=== PATIENT | female | born 1965 | race Caucasian/White ===

== ENCOUNTER → 2016-11-17 | Outpatient (CLI) | payer BC ==
[2004-11-03 15:16] VITALS: TEMP 98.7
[~2016-11-17] MED LIST: KURVELO; NORCO 325 MG-51 TAB PO
== END ==
LOC: COL.RAD 12:32
DX: K80.20 Calculus of gallbladder without cholecystitis without obstruction (principal)

== ENCOUNTER → 2016-11-17 | Outpatient (CLI) | payer BC ==
[2004-11-03 15:16] VITALS: TEMP 98.7
== END ==
LOC: MC.RAD 08:21
DX: Z12.31 Encounter for screening mammogram for malignant neoplasm of breast (principal)

== ENCOUNTER → 2017-12-10 | Outpatient (CLI) | payer BC ==
[2004-11-03 15:16] VITALS: TEMP 98.7
== END ==
LOC: MC.RAD 11:20
DX: Z12.31 Encounter for screening mammogram for malignant neoplasm of breast (principal)

== ENCOUNTER 2019-01-13 07:02 | Day surgery (SDC) | payer BC ==
[2019-01-13] VITALS (8 sets, daily range): BP systolic 92–139; BP diastolic 49–67; PULSE 64–85; TEMP 97.4–97.5
[~2019-01-13] VITALS: Ht 157.5 cm; Wt 76.7 kg
--- NOTE | 2019-01-13 08:50 | NUR ---
PATIENT RETURNED TO BAY 2 ACCOMPANIED BY ENDO STAFF. PATIENT WALKED FROM CART TO CHAIR WITH 1 ASSIST. VSS. PATIENT DENIES C/O'S. OFFERED AND RECEIVED CRACKERS AND WATER. AT BEDSIDE.
--- NOTE | 2019-01-13 09:15 | NUR ---
PATIENT CONTINUES RESTING IN CHAIR. PATIENT STATES SHE IS STILL VERY SLEEPY. BLOOD PRESSURE CONTINUES LOW. INCREASED RATE OF IV FLUIDS.
--- NOTE | 2019-01-13 09:24 | NUR ---
0850 PATIENT TO BAY2 PER CART ACCOMPANIED BY ENDO STAFF. WALKED FROM CART TO CHAIR WITH 1 ASSIST. VSS. OFFERED AND RECEIVED WATER AND CRACKERS. AT BEDSIDE.
--- NOTE | 2019-01-13 09:26 | NUR ---
PATIENT RESTING IN CHAIR WITHOUT C/O'S. BLOOD PRESSURE LOW. WILL CONTINUE TO MONITOR.
--- NOTE | 2019-01-13 09:34 | NUR ---
PATIENT CONTINUES SLEEPY. BLOOD PRESSURE CONTINUES LOW. OTHER VITALS STABLE. IV FLUIDS INFUSING. WILL CONTINUE TO MONITOR. O920 DR COTTRELL IN PATIENT ROOM AND TALK TO PATIENT AND .
--- NOTE | 2019-01-13 09:45 | NUR ---
PATIENT HAS EYES OPEN. DID TRY ED CRACKERS AND DRINKING WATER. BLOOD PRESSURE CONTINUES LOW. OTHER VITAL STABLE. IV FLUIDS INFUSING. PATIENT DENIES NAUSEA.
--- NOTE | 2019-01-13 10:05 | NUR ---
PATIENT IN CHAIR. BLOOD PRESSURE INCREASED TO 96/56, RECHECKED RT ARM FIORELLA-82/59. PATIENT DENIES LIGHT HEADED/DIZZINESS. PATIENT GOT UP AND WALKED IN EUCEDA WITH 1 ASSIST. PATIENT CONTINUES TO DENIES SYMPTOMS. WILL CONTINUE TO MONITOR. IV FLUIDS CONTINUE INFUSING.
--- NOTE | 2019-01-13 10:20 | NUR ---
PATIENT EATS ED CRACKERS. IV FLUIDS INFUSED. BLOOD PRESSURE TRENDING UP. PATIENT STATES READY TO GO HOME. 1030 DISCHARGE INSTRUCTIONS GIVEN VERBAL AND WRITTEN. QUESTIONS ANSWERED. PATIENTS GOES TO GET VECHILE.
== END 2019-01-13 10:34 | disposition home or self-care (01) ==
LOC: SDCO 07:02
DX: Z12.11 Encounter for screening for malignant neoplasm of colon (principal); K63.5 Polyp of colon; K64.0 First degree hemorrhoids; Z90.49 Acquired absence of other specified parts of digestive tract
CPT/HCPCS: OP; J2250; J2405; J3010; J7030

== ENCOUNTER → 2019-02-20 | Outpatient (CLI) | payer BC | LOC: MC.RAD 16:08 | DX: Z12.31 Encounter for screening mammogram for malignant neoplasm of breast (principal) ==

== ENCOUNTER → 2020-02-24 | Outpatient (CLI) | payer BC | LOC: MC.RAD 16:20 | DX: Z12.31 Encounter for screening mammogram for malignant neoplasm of breast (principal) ==

== ENCOUNTER → 2021-03-15 | Outpatient (CLI) | payer BC | LOC: MC.RAD 16:23 | DX: Z12.31 Encounter for screening mammogram for malignant neoplasm of breast (principal) ==

== ENCOUNTER 2021-06-03 17:43 | Emergency (ER) | payer BC ==
[2021-06-03 20:00] VITALS: BP 135/75; PULSE 83
== END 2021-06-03 20:06 | disposition home or self-care (01) ==
LOC: COL.ER 17:43
DX: M79.671 Pain in right foot (principal); M25.571 Pain in right ankle and joints of right foot; M25.551 Pain in right hip; W18.2XXA Fall in (into) shower or empty bathtub, initial encounter; Y92.009 Unspecified place in unspecified non-institutional (private) residence as the place of occurrence of the external cause
CPT/HCPCS: J3010

== ENCOUNTER → 2022-03-28 | Outpatient (CLI) | payer BC | LOC: MC.RAD 16:54 | DX: Z12.31 Encounter for screening mammogram for malignant neoplasm of breast (principal); N64.89 Other specified disorders of breast ==

== ENCOUNTER → 2022-03-31 | Outpatient (CLI) | payer BC | LOC: MC.RAD 13:48 | DX: N64.89 Other specified disorders of breast (principal) ==

== ENCOUNTER → 2023-06-26 | Outpatient (CLI) | payer BC | LOC: MC.RAD 15:07 | DX: Z12.31 Encounter for screening mammogram for malignant neoplasm of breast (principal) ==